=== PATIENT | female | born 1975 | race Caucasian/White ===

== ENCOUNTER 2019-05-13 11:55 | Outpatient (REF) | payer MEDICAID, SELFPAY ==
--- NOTE | 2019-05-13 11:00 | PAPFT_PTH ---
PATIENT: Debby Acosta LOC: [facility] U#:[id number] AGE/SX: 44/F ROOM: RE05/13/[address]: JOLENE Hester : 1975 BED: DIS: 05/13/2019 SPEC #: [id number] RECD: 05/13/19 13:03 STATUS: ROSALIA CRAIG #: [id number] JEFFERSON: 05/13/19 11:[address]: Jenny Alfonso DEPT: [facility] Cytology RECD BY: Guerita Patten Tissues: 1 - CX/ENDOCX FOR PAP SMEARS Procedures: PAP THIN PREP/UVM Screening HPV DNA PROBE Comments: [id number]
[2019-05-14 14:28] LABS: Chlamydia Result Negative; GC Result Negative; Specimen Description CERVIX
== END 2019-05-13 12:15 ==
LOC: LBN 11:55
PROVIDERS: Visit Provider Nurse Practitioner Family
DX: Z11.3 Encounter for screening for infections with a predominantly sexual mode of transmission (principal); Z12.4 Encounter for screening for malignant neoplasm of cervix; Z11.51 Encounter for screening for human papillomavirus (HPV)
CPT/HCPCS: 87491; 87591; 88142; 87624

== ENCOUNTER 2019-06-03 00:38 | Outpatient (CLI) | payer MEDICAID, SELFPAY ==
--- NOTE | 2019-06-03 12:00 | DI.MAMMO_ITS ---
SYMPTOMS/DIAGNOSIS: SCREENING, Z12.39 MAMMOGRAM: Mammograms were interpreted according to the usual protocol including computer analysis with CAD system, tomosynthesis and C view imaging. The breast tissue is heterogeneously radiodense, which lowers the sensitivity of the study. There is no evidence of a dominant mass. There are no suspicious calcifications. There are two asymmetric densities in the right breast inferiorly, which in the absence of prior images could represent a small nodule or nodules. Further assessment with a mediolateral compression spot image and ultrasound is recommended. SUMMARY: Category 0. Breast density category C. MQSA ASSESSMENT OF FINDINGS: Incomplete: Needs additional imaging evaluation. Category 0. Patient will receive a letter notifying them of these results. Bi-RADS category C. The breasts are heterogeneously dense, which may obscure small masses.
== END 2019-06-03 00:58 ==
PROVIDERS: PCP Emergency Medicine; Visit Provider Nurse Practitioner Family
DX: Z12.31 Encounter for screening mammogram for malignant neoplasm of breast (principal); R92.8 Other abnormal and inconclusive findings on diagnostic imaging of breast
CPT/HCPCS: 77063; 77067

== ENCOUNTER 2019-06-04 16:45 | Outpatient (REF) | payer MEDICAID, SELFPAY ==
--- NOTE | 2019-06-04 15:00 | ENDO_PTH ---
PATIENT: Debby Acosta LOC: [facility] U#:[id number] AGE/SX: 44/F ROOM: RE06/04/[address]: Ally Will : 1975 BED: DIS: 06/04/2019 SPEC #: [id number] RECD: 06/05/19 12:28 STATUS: ROSALIA REQ #: [id number] JEFFERSON: 06/04/19 15:[address]: Ally Will DEPT: Surgical Specimen RECD BY: Guerita Patten ENTERED: 06/05/19 12:29 SP TYPE: Endo OTHR DR: Rudy Carvalho DO Tissues: 1 - ENDOCERVICAL BX/CURRETTE 2 - CERVICAL BIOPSY Procedures: GROSS AND MICRO LEVEL 4 Comments: [id number]
== END 2019-06-04 17:05 ==
LOC: LBN 16:45
PROVIDERS: PCP Emergency Medicine; Visit Provider Obstetrics & Gynecology Gynecology
DX: N87.0 Mild cervical dysplasia (principal); R87.610 Atypical squamous cells of undetermined significance on cytologic smear of cervix (ASC-US); R87.810 Cervical high risk human papillomavirus (HPV) DNA test positive
CPT/HCPCS: 88305

== ENCOUNTER 2019-06-07 01:49 | Outpatient (CLI) | payer MEDICAID, SELFPAY ==
--- NOTE | 2019-06-07 13:45 | DI.MAMMO_ITS ---
EXAM: MG MAMMO SCREEN CALL BACK UNI CLINICAL HISTORY: F/U MAMMO, TWO ASYMMETRIC DENSITIES RT BREAST INFERIORLY. TECHNIQUE: Additional images are interpreted according to the usual protocol including tomosynthesis and 2D imaging. FINDINGS: A mediolateral compression spot film of the right breast was obtained. No discrete mass is seen. IMPRESSION: No evidence of malignancy, category 1, yearly screening mammography is recommended. Breast density, c ategory C. BI-RADS Cat 1 - Negative. Breast Density - Category C - Heterogeneously dense.
--- NOTE | 2019-06-07 14:20 | DI.US_ITS ---
EXAM: US BREAST RT LIMITED CLINICAL HISTORY: F/U MAMMO AND SPOT. TECHNIQUE: Ultrasound performed using standard protocol. IMPRESSION: No cyst or mass is demonstrated,
== END 2019-06-07 02:09 ==
PROVIDERS: PCP Emergency Medicine; Visit Provider Nurse Practitioner Family
DX: Z12.31 Encounter for screening mammogram for malignant neoplasm of breast (principal); R92.8 Other abnormal and inconclusive findings on diagnostic imaging of breast; N64.59 Other signs and symptoms in breast
CPT/HCPCS: 76642; 77063; 77067

== ENCOUNTER 2019-06-10 00:36 | Outpatient (CLI) | payer MEDICAID, SELFPAY ==
--- NOTE | 2019-06-10 15:43 | DI.MRI_ITS ---
EXAM: MR LUMBAR SPINE WO CLINICAL HISTORY: left leg weakness R29.898. TECHNIQUE: Multiplanar multisequence MRI of the Lumbar spine was performed. COMPARISON: No exams were available for comparison FINDINGS: Bones: The last intervertebral disc space is designated the L5/S1 level for the numbering purpose of this examination. The vertebral body heights are well maintained. Alignment is satisfactory. The si gnal characteristics are unremarkable. Cord: The conus medullaris has a normal appearance and location. T12-L1: No disc herniations or bulges are present. L1-2: No disc herniations or bulges are present. L2-3: No disc herniations or bulges are present. L3-4: No disc herniations or bulges are present. L4-5: No disc herniations or bulges are present. L5-S1: There is disc desiccation. There is a large left paracentral disc herniation which extrude s posterior to the S1 vertebral body. It compresses the left S1 nerve root. There is mild narrowing of the central spinal canal. There are degenerative changes seen at the facet joints at this level. Soft tissues: The visualized SI joints and sacrum are well maintained. The paraspinal soft tissues ar e unremarkable. There is a 4.1 cm complex cystic lesion in the right pelvis. This may be ovarian in origin. It is incompletely imaged on this examination. Pelvic ultrasound should be considered for f urther evaluation. IMPRESSION: 1. Large left paracentral disc herniation at L5-S1. There is extrusion posterior to the S1 vertebra l body. This results in compression of the left S1 nerve root. 2. 4.1 cm complex cystic lesion in the right pelvis. This may be ovarian in origin. It is incomple tely imaged on this examination. Pelvic ultrasound should be considered for further evaluation.
--- NOTE | 2019-06-10 16:25 | DI.VRAD_ITS ---
PROCEDURE INFORMATION: Exam: MR Lumbar Spine Without Contrast. Exam date and time: 06/10/2019 3:53 PM Clinical history: 44 years old, female; Patient HX: Low back pain, numbness left leg. TECHNIQUE: Imaging protocol: Multiplanar magnetic resonance images of the lumbar spine without intravenous contrast. COMPARISON: No relevant prior studies available. FINDINGS: Vertebrae: No abnormal bone marrow signal. No spondylolisthesis. No acute fracture. The conus terminates at L1. Spinal cord: Normal signal. No cord compression. L1-L2: No significant disc disease. No significant spinal stenosis. L2-L3: No significant disc disease. No significant spinal stenosis. L3-L4: No significant disc disease. No significant spinal stenosis. L4-L5: Mild disc bulge. Bilateral facet and ligamentum flavum hypertrophy. No spinal canal stenosis. No neural foramina narrowing. L5-S1: There is left paracentral disc protrusion. There is mass effect on the descending left S1 nerve. No neural foramina narrowing. Other bones/joints: Soft tissues: Unremarkable. IMPRESSION: Left paracentral disc protrusion at L5-S1 with mass effect on the descending left S1 nerve. Dictated and Authenticated by: Edward Sun MD. Ordering:ODILIA Grant MD
== END 2019-06-10 00:56 ==
PROVIDERS: PCP Emergency Medicine; Visit Provider Emergency Medicine
DX: R29.898 Other symptoms and signs involving the musculoskeletal system (principal); M51.17 Intervertebral disc disorders with radiculopathy, lumbosacral region; N94.89 Other specified conditions associated with female genital organs and menstrual cycle
CPT/HCPCS: 72148

== ENCOUNTER 2019-06-13 00:49 | Outpatient (CLI) | payer MEDICAID, SELFPAY ==
--- NOTE | 2019-06-13 14:00 | DI.US_ITS ---
EXAM: US PELVIS AND TRANSVAGINAL CLINICAL HISTORY: PELVIC MASS, R19.00. TECHNIQUE: Pelvic ultrasound was performed transabdominally and transvaginally. COMPARISON: There are no comparison exams available. FINDINGS: Please see the accompanying data sheet for measurements of the pelvic structures. There is an IUD in place in the endometrial cavity. There is a small quantity of free fluid in the pelvis. Uterus is unremarkable in appearance. Left ovary has a normal follicular appearance. Right ovary contains a c omplex 42 x 26 x 33 millimeter in diameter mixed echogenicity mass with appearance consistent with he morrhagic cyst. IMPRESSION: Presumed hemorrhagic cyst, right ovary. Other etiologies not entirely excluded and follow-up pelvic u ltrasound is recommended in 4-6 weeks.
== END 2019-06-13 01:09 ==
PROVIDERS: PCP Emergency Medicine; Visit Provider Emergency Medicine
DX: R19.00 Intra-abdominal and pelvic swelling, mass and lump, unspecified site (principal); N83.11 Corpus luteum cyst of right ovary
CPT/HCPCS: 76830; 76856

== ENCOUNTER 2022-07-11 14:08 | Outpatient (REF) | payer MEDICAID, SELFPAY ==
--- NOTE | 2022-07-11 11:30 | PAPFT_PTH ---
PATIENT: Debby Acosta LOC: [facility] U#:[id number] AGE/SX: 47/F ROOM: RE07/11/[address]: Eileen Page NP : 1975 BED: DIS: 07/11/2022 SPEC #: [id number] RECD: 07/11/22 18:05 STATUS: LESTERJunior REDevendra #: [id number] JEFFERSON: 07/11/22 11:[address]: Kaylee ABRAHAM,Eileen DEPT: [facility] Cytology RECD BY: Guerita Patten ENTERED: 07/11/22 18:05 SP TYPE: PAPFT OTHR DR: Verna Hernandez, JOLENE Tissues: 1 - CX/ENDOCX FOR PAP SMEARS Procedures: PAP THIN PREP/UVM Screening HPV DNA PROBE Comments: [id number]
== END 2022-07-11 14:09 | disposition home or self-care (01) ==
LOC: LBN 14:08
PROVIDERS: PCP Nurse Practitioner Family; Visit Provider Nurse Practitioner Women's Health
DX: Z12.4 Encounter for screening for malignant neoplasm of cervix (principal); Z87.410 Personal history of cervical dysplasia
CPT/HCPCS: 88142; 87624

== ENCOUNTER → 2022-07-13 02:22 | Outpatient (CLI) | payer MEDICAID, SELFPAY ==
--- NOTE | 2022-07-13 06:30 | DI.MAMMO_ITS ---
Exam(s) MAMMO SCREENING EXAM: MAMMO SCREENING CLINICAL HISTORY: screening,z12.39 TECHNIQUE: Mammograms were interpreted according to the usual protocol including computer analysis w [employer] CAD system, tomosynthesis and C-view imaging. COMPARISON: FINDINGS: The breasts are heterogeneously dense. No dominant mass or clumped microcalcification is identified in either breast. The current examination is compared with previous examination May 2019 and t here has been no gross interval change in appearance in comparison with the prior study. IMPRESSION: No specific evidence of malignancy at this time. Routine screening examinations are suggested at yea rly intervals in this age group according to the ACS ACR guidelines. BI-RADS Category 1 - Negative Breast Density - Category C - Heterogeneously dense
== END ==
PROVIDERS: PCP Nurse Practitioner Family; Visit Provider Nurse Practitioner Family
DX: Z12.31 Encounter for screening mammogram for malignant neoplasm of breast (principal); R92.8 Other abnormal and inconclusive findings on diagnostic imaging of breast
CPT/HCPCS: 77063; 77067

== ENCOUNTER 2022-07-20 04:15 | Outpatient (CLI) | payer MEDICAID, SELFPAY ==
[2022-07-20 12:37] LABS: Hemoglobin A1C 5.2 % (<5.7)
[2022-07-20 12:40] LABS: Anion Gap 8.8 mmol/L (3-11); BUN 14 mg/dL (7-18); CO2 26.2 mmol/L (21.0-32.0); CREATININE 0.8 mg/dL (0.55-1.02); Calcium 8.9 mg/dL (8.5-10.1); Calculated LDL 90 mg/dL (<100); Chloride 105 mmol/L (98-107); Cholesterol 189 mg/dL (<200); Estimated GFR 90.83 (mL/min/1.73m2); Glucose 103 mg/dL (74-106); HDL Cholesterol 55 mg/dL (40-60); Potassium 3.8 mmol/L (3.5-5.1); Sodium 140 mmol/L (136-145); TSH (W/Ref FT4) 2.43 uIU/mL (0.36-3.74); Triglyceride 220 mg/dL (<150)
== END 2022-07-20 04:16 | disposition home or self-care (01) ==
LOC: LOS 04:15
PROVIDERS: PCP Nurse Practitioner Family; Visit Provider Nurse Practitioner Family
DX: Z00.00 Encounter for general adult medical examination without abnormal findings (principal)
CPT/HCPCS: 36415; 80048; 80061; 83036; 84443

== ENCOUNTER 2023-07-12 10:58 | Outpatient (REF) | payer BC, MEDICAID, SELFPAY ==
--- NOTE | 2023-07-12 10:15 | CER_PTH ---
PATIENT: Debby Acosta LOC: [facility] U#:[id number] AGE/SX: 48/F ROOM: RE07/12/[address]: Bonnie Mccollum DO : 1975 BED: DIS: 07/12/2023 SPEC #: [id number] RECD: 07/12/23 12:54 STATUS: ROSALIA REQ #: [id number] JEFFERSON: 07/12/23 10:[address]: Bonnie Mccollum DEPT: Surgical Specimen RECD BY: Guerita Patten ENTERED: 07/12/23 12:54 SP TYPE: CER PRACHI DR: JOLENE Sanchez Tissues: 1 - CERVICAL BIOPSY Procedures: GROSS AND MICRO LEVEL 4 Comments: [id number]
== END 2023-07-12 10:59 | disposition home or self-care (01) ==
LOC: LBN 10:58
PROVIDERS: PCP Nurse Practitioner Family; Visit Provider Obstetrics & Gynecology
DX: N84.1 Polyp of cervix uteri (principal)
CPT/HCPCS: 88305

== ENCOUNTER → 2023-07-14 00:43 | Outpatient (CLI) | payer BC, MEDICAID, SELFPAY ==
--- NOTE | 2023-07-14 07:44 | DI.MAMMO_ITS ---
Exam(s) MAMMO SCREENING EXAM: MAMMO SCREENING CLINICAL HISTORY: screening, z12.39 TECHNIQUE: Mammograms were interpreted according to the usual protocol including computer analysis w [employer] CAD system, tomosynthesis and C-view imaging. COMPARISON: 2018 and 2021 FINDINGS: The breasts are composed of heterogeneously dense fibroglandular densities, Breast Density category C . No suspicious masses or suspicious microcalcifications are seen. No skin thickening or abnormal axillary lymph nodes are seen. There has been no significant change from prior exams. IMPRESSION: BI-RADS Category 1, Negative mammogram. Yearly screening mammography is recommended. Breast Density Category C, heterogeneously Dense. The mammogram demonstrates the patient's breast tissue is dense. Dense breast tissue is very common a nd is not abnormal but dense breast tissue can make it harder to find cancer on a mammogram. Also, de nse breast tissue may increase breast cancer risk. This information about the result of the mammogram report was provided to the patient to raise their awareness. Use this report when you speak with the patient about their risks for breast cancer, which includes their family history. At that time, you may recommend additional screening tests (Ultrasound or MRI) as they might be useful based on their r isk. A negative radiographic report should not delay biopsy if a dominant or clinically suspicious mass is present. Up to ten percent of cancers are not identified on mammography. A negative report may reinforce clinical impression. Adenosis and dense breasts may obscure an underlying neoplasm. False positive reports average 6 to 10%.
== END ==
PROVIDERS: PCP Nurse Practitioner Family; Visit Provider Nurse Practitioner Family
DX: Z12.31 Encounter for screening mammogram for malignant neoplasm of breast (principal); R92.333 Mammographic heterogeneous density, bilateral breasts
CPT/HCPCS: 77063; 77067

== ENCOUNTER 2024-07-05 09:57 | Outpatient (CLI) | payer BC, SELFPAY ==
[2024-07-05 13:18] LABS: Hemoglobin A1C 5.2 % (<5.7)
[2024-07-05 13:26] LABS: Anion Gap 9.8 mmol/L (3-11); BUN 19 mg/dL (7-18); CO2 25.2 mmol/L (21.0-32.0); CREATININE 0.8 mg/dL (0.55-1.02); Calcium 9.3 mg/dL (8.5-10.1); Calculated LDL 112 mg/dL (<100); Chloride 108 mmol/L (98-107); Cholesterol 198 mg/dL (<200); Estimated GFR 89.71 (mL/min/1.73m2); Glucose 106 mg/dL (74-106); HDL Cholesterol 55 mg/dL (40-60); Potassium 4.2 mmol/L (3.5-5.1); Sodium 143 mmol/L (136-145); TSH (W/Ref FT4) 1.69 uIU/mL (0.36-3.74); Triglyceride 156 mg/dL (<150)
== END 2024-07-05 09:58 | disposition home or self-care (01) ==
LOC: LOS 09:58
PROVIDERS: Nurse Practitioner Family; PCP Nurse Practitioner Family; Referring Provider Nurse Practitioner Family; Visit Provider Nurse Practitioner Family
DX: Z00.00 Encounter for general adult medical examination without abnormal findings (principal); M54.50 Low back pain, unspecified; G89.29 Other chronic pain; M79.671 Pain in right foot; F32.9 Major depressive disorder, single episode, unspecified; Z12.39 Encounter for other screening for malignant neoplasm of breast; Z23 Encounter for immunization; Z98.890 Other specified postprocedural states
CPT/HCPCS: 36415; 80048; 80061; 83036; 84443

== ENCOUNTER 2024-07-16 01:22 | Outpatient (CLI) | payer BC, SELFPAY ==
--- NOTE | 2024-07-16 12:33 | DI.MAMMO_ITS ---
Exam(s) MAMMO SCREENING EXAM: MAMMO SCREENING CLINICAL HISTORY: screening,z12.39 TECHNIQUE: Mammograms were interpreted according to the usual protocol including computer analysis w [employer] CAD system, tomosynthesis and C-view imaging. COMPARISON: 2018 through 2022 FINDINGS: The breasts are composed of heterogeneously dense fibroglandular densities, Breast Density category C . No suspicious masses or suspicious microcalcifications are seen in the right breast. There is questi on of some increased density in the upper outer quadrant of the left breast compared with prior exams . Spot compression views and ultrasound evaluation. No skin thickening or abnormal axillary lymph nodes are seen. There has been no significant change in the right breast from prior exams. IMPRESSION: Left breast BI-RADS Category 0 - Incomplete: Need additional imaging evaluation Right breast yearly screening mammography is recommended. Breast Density Category C, heterogeneously Dense. The mammogram demonstrates the patient's breast tissue is dense. Dense breast tissue is very common a nd is not abnormal but dense breast tissue can make it harder to find cancer on a mammogram. Also, de nse breast tissue may increase breast cancer risk. This information about the result of the mammogram report was provided to the patient to raise their awareness. Use this report when you speak with the patient about their risks for breast cancer, which includes their family history. At that time, you may recommend additional screening tests (Ultrasound or MRI) as they might be useful based on their r isk. A negative radiographic report should not delay biopsy if a dominant or clinically suspicious mass is present. Up to ten percent of cancers are not identified on mammography. A negative report may reinforce clinical impression. Adenosis and dense breasts may obscure an underlying neoplasm. False positive reports average 6 to 10%.
== END 2024-07-16 01:42 ==
LOC: DI 01:23
PROVIDERS: PCP Nurse Practitioner Family; Visit Provider Nurse Practitioner Family
DX: Z12.39 Encounter for other screening for malignant neoplasm of breast (principal); R92.323 Mammographic fibroglandular density, bilateral breasts
CPT/HCPCS: 77063; 77067

== ENCOUNTER 2024-07-22 01:42 | Outpatient (CLI) | payer BC, SELFPAY ==
--- NOTE | 2024-07-22 | DI.US_ITS ---
Exam(s) MG MAMMO SCREEN CALL BACK UNI US BREAST LT LIMITED EXAM: MG MAMMO SCREEN CALL BACK UNI and U/S breast LT limited CLINICAL HISTORY: Increased density in upper outer quadrant of Lt breast. TECHNIQUE: Craniocaudal and mediolateral oblique Full Field Digital Mammography views of the left br east with Computer Aided Diagnosis followed by Tomosynthesis and left breast ultrasound. COMPARISON: Comparison is made with prior examinations. FINDINGS: Mammography/Tomosynthesis: Masses/Architectural Distortion: There is a question of an underlying area of architectural distortio n in the upper outer quadrant of the left breast which persists on the additional views. This may re flect overlying fibroglandular tissue but underlying mass cannot be excluded. Microcalcifictions: No suspicious pleomorphic-type are seen. Skin Thickening/Nipple Retraction: None. Limited left breast US: Echotexture: Normal appearance of the glandular tissue. Shadowing: No suspicious foci. Cyst: None. Solid lesions: At the 4 o'clock position of the left breast, there is an irregular hypoechoic nodule present with this eccentric area of increased echogenicity. There is blood flow seen at the lateral a spect of the nodule. This may represent an intraparenchymal lymph node. Ductal dilation: None. IMPRESSION: 1. Question of area of architectural distortion in the upper outer quadrant of the left breast. The hypoechoic nodule seen at the 4 o'clock position does not explain the finding seen on the mammogram. 2. An MRI of the breast is recommended for further evaluation. 3. The findings were discussed with the patient and their primary physician, Verna Hernandez on the d ate of the examination. BI-RADS Category 0 - Incomplete: Need additional imaging evaluation Breast Density - Category C - Heterogeneously dense Breast density Category C or D implies that the patient has dense breast tissue. Dense breast tissue can make it harder to find cancer on a mammogram. Dense breast tissue is also associated with an incr eased risk of breast cancer. This information about the result of the mammogram report was provided to the patient to raise their awareness. Use this report when you speak with the patient about their risks for breast cancer, which includes their family history. At that time, you may recommend additional screening tests (Ultrasoun d or MRI) as these tests may add significant information. A negative radiographic report should not delay biopsy if a dominant or clinically suspicious mass is present. Up to ten percent of cancers are not identified on mammography. A negative report may reinforce clinical impression. Adenosis and dense breasts may obscure an underlying neoplasm. False positive reports average 6 to 10%. Patient will receive a letter notifying them of these results.
== END 2024-07-22 02:02 ==
LOC: DI 01:43
PROVIDERS: PCP Nurse Practitioner Family; Visit Provider Nurse Practitioner Family
DX: Z12.31 Encounter for screening mammogram for malignant neoplasm of breast (principal); R92.8 Other abnormal and inconclusive findings on diagnostic imaging of breast
CPT/HCPCS: 76642; 77063; 77067

== ENCOUNTER 2024-08-23 10:57 | Outpatient (RCR) | payer BC, SELFPAY ==
--- NOTE | 2024-08-27 13:30 | W.HOLTRPT ---
Date of service: 08/27/24 Time of Service: 13:30 Holter Monitor Report Referring Provider:: Verna Hernandez Indications:: Palpitations Holter Monitor Note: This is a 48-hour Holter monitor. Predominant rhythm was sinus with an average heart rate of 85. Minimum was 52, maximum 133 There were very rare isolated ventricular ectopic beats There was no atrial fibrillation, no high-grade AV block, no pauses greater than 3 seconds Symptoms were reported which had no correlation to any dysrhythmia
== END 2024-09-17 23:59 | disposition home or self-care (01) ==
LOC: CARDOPNVT 10:57
PROVIDERS: PCP Nurse Practitioner Family; Visit Provider Internal Medicine Cardiovascular Disease
DX: R00.2 Palpitations (principal); Z51.89 Encounter for other specified aftercare
CPT/HCPCS: 93225; 93226

== ENCOUNTER 2024-10-08 01:44 | Outpatient (CLI) | payer BC, SELFPAY ==
--- NOTE | 2024-10-08 08:15 | DI.RAD_ITS ---
Exam(s) XR FOOT RT COMPLETE EXAM: XR FOOT RT COMPLETE CLINICAL HISTORY: Right foot pain, M79.671. TECHNIQUE: 2D digital imaging was performed. COMPARISON: CR RIGHT FOOT COMPLETE from 02/04/2009 FINDINGS: 3 views No evidence of fracture or diastasis of Lisfranc joint. There is some degenerative change at the 1st tarsometatarsal joint. Less so at the other TMT joints. Metatarsophalangeal joints appear unremarkable and fluid in the great toe MTP joint. Bone density normal. No osseous lesions. No inferior calcaneal spur. No enthesophytes. IMPRESSION: Degenerative changes evident at the 1st tarsometatarsal joint. DATA REPOSITORY: RADIATION DOSE DELIVERED:
--- NOTE | 2024-10-08 08:15 | DI.RAD_ITS ---
Exam(s) XR FOOT LT COMPLETE EXAM: XR FOOT LT COMPLETE CLINICAL HISTORY: Left foot pain, M79.672. TECHNIQUE: 2D digital imaging was performed. COMPARISON: CR XR FOOT RT COMPLETE from 10/08/2024 FINDINGS: 3 views No evidence of fracture or diastasis of the Lisfranc joint. Great toe metatarsophalangeal joint appears unremarkable. No obvious degenerative changes at the tar sometatarsal joints. Metatarsophalangeal joints appear unremarkable. There is a small inferior calc aneal spur noted. There is an accessory ossicle dorsal to the proximal navicular bone; os supranavic ulare. Bone density normal. No osseous lesions. No erosions. IMPRESSION: As above. DATA REPOSITORY: RADIATION DOSE DELIVERED:
== END 2024-10-08 02:04 ==
LOC: DI 01:44
PROVIDERS: PCP Nurse Practitioner Family; Visit Provider Podiatrist
DX: M79.672 Pain in left foot (principal); M79.671 Pain in right foot
CPT/HCPCS: 73630

== ENCOUNTER → 2025-07-22 00:44 | Outpatient (CLI) | payer BC, SELFPAY ==
--- NOTE | 2025-07-22 12:06 | DI.MAMMO_ITS ---
Exam(s) MAMMO SCREENING EXAM: MAMMO SCREENING CLINICAL HISTORY: screening Z12.39. TECHNIQUE: Bilateral full field digital CC and MLO mammographic images were obtained with 3D tomosynthesis and utilizing computer aided detection (CAD). COMPARISON: Prior mammograms were reviewed. This patient underwent excisional biopsy of the left breast on 09/12/2024. Apparently benign. FINDINGS: The fibroglandular tissue pattern is again noted to be heterogeneously dense. There are no new right breast findings. In the left breast on the 3D MLO view there is an area of architectural distortion located is in upper outer quadrant approximately 6 cm in from the nipple. Additional imaging recommended. There are no malignant-appearing microcalcification groups in this region nor elsewhere in either breast. IMPRESSION: 1. No radiographic evidence of malignancy in the right breast. 2. Left breast findings as above. Recommend spot compression left breast MLO view and complete left breast ultrasound. BI-RADS Category 0 - Incomplete: Need additional imaging evaluation Breast Density - Category C - The breast are heterogeneously dense, which may obscure small masses. Breast density Category C or D implies that the patient has dense breast tissue. Dense breast tissue can make it harder to find cancer on a mammogram. Dense breast tissue is also associated with an increased risk of breast cancer. This information about the result of the mammogram report was provided to the patient to raise their awareness. Use this report when you speak with the patient about their risks for breast cancer, which includes their family history. At that time, you may recommend additional screening tests (Ultrasound or MRI) as these tests may add significant information. A negative radiographic report should not delay biopsy if a dominant or clinically suspicious mass is present. Up to ten percent of cancers are not identified on mammography. A negative report may reinforce clinical impression. Adenosis and dense breasts may obscure an underlying neoplasm. False positive reports average 6 to 10%. Patient will receive a letter notifying them of these results.
== END ==
LOC: DI 00:44
PROVIDERS: PCP Nurse Practitioner Family; Visit Provider Obstetrics & Gynecology
DX: Z12.31 Encounter for screening mammogram for malignant neoplasm of breast (principal); N63.21 Unspecified lump in the left breast, upper outer quadrant; R92.313 Mammographic fatty tissue density, bilateral breasts
CPT/HCPCS: 77063; 77067

== ENCOUNTER → 2025-07-29 00:25 | Outpatient (CLI) | payer BC, SELFPAY ==
--- NOTE | 2025-07-29 10:15 | DI.US_ITS ---
Exam(s) MG MAMMO SCREEN CALL BACK UNI US BREAST LT COMPLETE EXAM: MG MAMMO SCREEN CALL BACK UNI LEFT COMPLETE LEFT BREAST ULTRASOUND CLINICAL HISTORY: F/U ABNL MAMMO, ARCHITECTURAL DISTORTION UOQ LT BREAST. TECHNIQUE: Unilateral LEFT BREAST spot mammographic images obtained with 3D tomosynthesisand utilizing computer aided detection (CAD). . Complete LEFT breast Ultrasound was also performed, including all 4 quadrants, the retroareolar region, and the ipsilateral axilla. COMPARISON: Prior mammograms were reviewed. This additional imaging was performed due to findings described on the recent screening mammogram of 07/22/2025. This 50-year-old patient underwent excisional biopsy of the left breast in August 2024 at [facility] which was negative for malignancy (complex sclerosing lesion with associated sclerosing adenosis, florid usual ductal hyperplasia, columnar cell change, apocrine metaplasia and microscopic papilloma bows quotation FINDINGS: DIAGNOSTIC MAMMOGRAM: Additional mammographic views performed todayreveals the area of architectural distortion in the lateral part of the left breast to persist. We proceeded with ultrasound COMPLETE LEFT BREAST ULTRASOUND: Ultrasound performed today reveals a solid finding which corresponds to the mammographic finding. At the 3 o'clock position there is finding which has appearance of scarring (as opposed to a true mass) and is exactly underneath her skin scar at the 3 o'clock position of the left breast from prior surgery August 2024. There are no other focal findings in all 4 quadrants of the left breast. Scanning of the ipsilateral axilla reveals no significant adenopathy. IMPRESSION: 1. Findings consistent with post excisional biopsy open (August 2024) scarring at 3 o'clock position of the left breast. Appropriate follow-up discussed by myself with the patient today is repeat left breast mammogram and ultrasound in 6 months. The patient was informed of these findings and recommendations by myself prior to leaving the department today. BI-RADS Category 3 - 6 month - Probably Benign Finding: Recommend follow-up mammography in 6 months Breast Density - Category C - The breast are heterogeneously dense, which may obscure small masses. Breast density Category C or D implies that the patient has dense breast tissue. Dense breast tissue can make it harder to find cancer on a mammogram. Dense breast tissue is also associated with an increased risk of breast cancer. This information about the result of the mammogram report was provided to the patient to raise their awareness. Use this report when you speak with the patient about their risks for breast cancer, which includes their family history. At that time, you may recommend additional screening tests (Ultrasound or MRI) as these tests may add significant information. A negative radiographic report should not delay biopsy if a dominant or clinically suspicious mass is present. Up to ten percent of cancers are not identified on mammography. A negative report may reinforce clinical impression. Adenosis and dense breasts may obscure an underlying neoplasm. False positive reports average 6 to 10%. Patient will receive a letter notifying them of these results.
== END ==
LOC: DI 00:25
PROVIDERS: PCP Nurse Practitioner Family; Visit Provider Obstetrics & Gynecology
DX: Z12.31 Encounter for screening mammogram for malignant neoplasm of breast (principal)
CPT/HCPCS: 76642; 77063; 77067